=== PATIENT | female | born 1945 | race Caucasian/White ===

== ENCOUNTER → 2023-08-28 10:42 | Outpatient (REF) | payer MEDICARE, OTHER, SELFPAY ==
[2023-08-28 13:46] LABS: % Basophils 0.9 % (0-2); % Immature Granulocytes 0.2 % (0-0.5); % Monocytes 11.2 % (1.7-9.3); % Neutrophils 65.7 % (42.2-75.2); Absolute Monocytes 0.5 10^3/uL (0.1-0.6); Hematocrit 39.2 % (37.0-47.0); Mean Corp Hgb Conc. 33.2 g/dL (33.0-37.0); Mean Corpuscular Hgb 30.1 pg (27.0-31.0); Mean Corpuscular Volume 90.7 fL (81.0-99.0); Mean Platelet Volume 11.8 fL (7.4-10.4); Nucleated Red Blood Cells % 0 %; Platelet Count 150 10^3/uL (130-400); Red Blood Cell Count 4.32 10^6/uL (4.20-5.40); Red Cell Dist. Width 13.4 % (11.5-14.5); White Blood Cell Count 4.6 10^3/uL (4.8-10.8)
[2023-08-28 13:54] LABS: ALT (SGPT) 18 U/L (0-35); AST (SGOT) 27 U/L (14-36); Albumin 3.8 g/dl (3.5-5.0); Alkaline Phosphatase 91 U/L (38-126); Blood Urea Nitrogen 14 mg/dl (7-17); Calcium 9.4 mg/dl (8.4-10.2); Carbon Dioxide 32 mmol/L (22-30); Chloride 103 mmol/L (98-107); Glucose 108 mg/dl (70-99); Potassium 3.8 mmol/L (3.5-5.1); Sodium 140 mmol/L (135-145); Total Bilirubin 0.9 mg/dl (0.2-1.3); Total Protein 6.8 g/dl (6.3-8.2); eGFR > 60.00
[2023-08-28 14:26] LABS: TSH Reflex To Free T4 0.06 uIU/ml (0.47-4.68)
[2023-08-28 14:44] LABS: Vitamin B12 353 pg/ml (239-931)
[2023-08-28 14:52] LABS: Free T4 1.25 ng/dl (0.78-2.19)
[2023-09-04 17:18] LABS: Syphilis/T. pallidum Ab Reflex Negative (Negative)
== END ==
LOC: HWLAB 10:42
PROVIDERS: ATTENDING PHYSICIAN Student in an Organized Health Care Education/Training Program
DX: R41.3 Other amnesia (principal); E03.9 Hypothyroidism, unspecified; G31.84 Mild cognitive impairment of uncertain or unknown etiology
CPT/HCPCS: 36415; 80053; 82607; 84439; 84443; 85025; 86780

== ENCOUNTER → 2023-09-15 13:28 | Outpatient (REF) | payer MEDICARE, OTHER, SELFPAY | LOC: MRI 3T 13:28 | PROVIDERS: ATTENDING PHYSICIAN Student in an Organized Health Care Education/Training Program | DX: R41.3 Other amnesia (principal); G31.84 Mild cognitive impairment of uncertain or unknown etiology | CPT/HCPCS: 70551 ==

== ENCOUNTER → 2023-10-08 10:32 | Outpatient (REF) | payer MEDICARE, OTHER, SELFPAY ==
[2023-10-09 14:53] LABS: Syphilis/T. pallidum Ab Reflex Negative (Negative)
== END ==
LOC: HWLAB 10:32
PROVIDERS: ATTENDING PHYSICIAN Student in an Organized Health Care Education/Training Program
DX: E03.9 Hypothyroidism, unspecified (principal); R41.3 Other amnesia; G31.84 Mild cognitive impairment of uncertain or unknown etiology
CPT/HCPCS: 36415; 84443; 86780

== ENCOUNTER → 2023-10-22 15:02 | Outpatient (REF) | payer MEDICARE, OTHER, SELFPAY ==
[2023-10-22 17:17] LABS: TSH Reflex To Free T4 1.04 uIU/ml (0.47-4.68)
== END ==
LOC: REG 15:02
PROVIDERS: ATTENDING PHYSICIAN Student in an Organized Health Care Education/Training Program
DX: E03.9 Hypothyroidism, unspecified (principal)
CPT/HCPCS: 36415; 84443

== ENCOUNTER → 2023-12-21 17:39 | Outpatient (REF) | payer MEDICARE, OTHER, SELFPAY | LOC: WDC 17:39 | PROVIDERS: ATTENDING PHYSICIAN Student in an Organized Health Care Education/Training Program | DX: Z12.31 Encounter for screening mammogram for malignant neoplasm of breast (principal) | CPT/HCPCS: 77063; 77067 ==

== ENCOUNTER → 2023-12-29 07:15 | Outpatient (REF) | payer MEDICARE, OTHER, SELFPAY ==
[2023-12-29 10:12] LABS: % Basophils 0.5 % (0-2); % Immature Granulocytes 0.3 % (0-0.5); % Neutrophils 55.2 % (42.2-75.2); Absolute Lymphocytes 1.2 10^3/uL (1.2-3.4); Absolute Monocytes 0.5 10^3/uL (0.1-0.6); Absolute Neutrophils 2.1 10^3/uL (1.4-6.5); Hematocrit 39.9 % (37.0-47.0); Hemoglobin 13.1 g/dL (12.0-16.0); Mean Corp Hgb Conc. 32.8 g/dL (33.0-37.0); Mean Corpuscular Hgb 29.2 pg (27.0-31.0); Mean Corpuscular Volume 89.1 fL (81.0-99.0); Mean Platelet Volume 12.2 fL (7.4-10.4); Nucleated Red Blood Cells % 0 %; Platelet Count 135 10^3/uL (130-400); Red Blood Cell Count 4.48 10^6/uL (4.20-5.40); Red Cell Dist. Width 13.8 % (11.5-14.5); White Blood Cell Count 3.9 10^3/uL (4.8-10.8)
[2023-12-29 11:01] LABS: ALT (SGPT) 17 U/L (0-35); AST (SGOT) 28 U/L (14-36); Albumin 4.4 g/dl (3.5-5.0); Alkaline Phosphatase 89 U/L (38-126); Blood Urea Nitrogen 15 mg/dl (7-17); Calcium 9.3 mg/dl (8.4-10.2); Carbon Dioxide 29 mmol/L (22-30); Chloride 103 mmol/L (98-107); Glucose 109 mg/dl (70-99); Potassium 3.5 mmol/L (3.5-5.1); Sodium 142 mmol/L (135-145); Total Bilirubin 0.9 mg/dl (0.2-1.3); Total Protein 6.8 g/dl (6.3-8.2); eGFR > 60.00
== END ==
LOC: SDSPAT 07:15
PROVIDERS: ATTENDING PHYSICIAN Obstetrics & Gynecology Gynecologic Oncology; FAMILY PHYSICIAN Student in an Organized Health Care Education/Training Program
DX: Z01.818 Encounter for other preprocedural examination (principal)
CPT/HCPCS: 36415; 80053; 85025; 86850; 86900; 86901; 93005

== ENCOUNTER 2024-01-05 06:21 | Day surgery (SDC) | payer MEDICARE, OTHER, SELFPAY ==
[2023-12-29 07:35] VITALS: BMI 33.4
[2024-01-05 07:57] VITALS: BMI 33.4
[2024-01-05 07:59] VITALS: BP 163/67
[2024-01-05] MEDS: TYLENOL 1000 MG PO (08:08)
[2024-01-05] MEDS: HEPARIN 5000 UNITS SC (08:08)
[2024-01-05] MEDS: CELEBREX 200 MG PO (08:08)
[2024-01-05] MEDS: NORMOSOL-R 1000 IV (08:21)
[2024-01-05 10:55] VITALS: BP 163/67
--- NOTE | 2024-01-05 11:01 | OR.RPT ---
Operative Report
Operative Report
Date of surgery: January 05, 2024
Preoperative diagnosis Vulvar intraepithelial neoplasia 3
Postop diagnosis: Same
Surgeon: Lorenzo Benito MD
Anesthesia General LMA intubation
Procedure partial simple vulvectomy (right posterior vulva and perineal body)
Estimated blood loss 5 cc
Complications : none
Procedure in detail: This patient is brought to the operating room for definitive excision of recently diagnosed severe dysplasia involving vulva. She was placed in supine position, general anesthesia was induced and she was intubated with LMA.
She was positioned with yellowfin stirrups in dorsal lithotomy, hair involving right and left labia perineal body and perianal skin was clipped. The patient was prepped with ChloraPrep on the skin and Betadine and vagina. Timeout procedure was
carried out she was properly identified, she received Ancef 2 g IV for prophylaxis. The skin was soaked in acetic acid 0.25% for 3 minutes and the outline of the lesion was better defined. Prior to making skin incision the incision line was
infiltrated with 1% lidocaine with epinephrine. Skin incision was made in an elliptical fashion involving the posterior vulva, right anterior perianal region the entire perineal body and left posterior vulva. Skin incision was made with skin,
electrocautery was used to excise skin and subcutaneous tissue down to the level of deep fat. Good hemostasis was established the specimen was tagged using double strands on right mid labia majora, and on the left side with single strand of suture.
I used a series of horizontal mattress sutures using 3-0 Monocryl to reapproximate this butterfly shaped opening of the skin and then the perineal body was reconstructed with a series of sutures bringing the right and left tissue together. I
examined the anus and vagina and there was no injury or communication. 10 cc 0.25% Marcaine was applied to the incision. Silvadene was applied to the incision and dressing was applied. Counts of laps instruments and needle was correct x 2. I was
present and scrubbed for entire procedure as dictated above.
Disposition: To PACU extubated stable
[2024-01-05 11:57] VITALS: BP 164/63
[2024-01-05 12:00] VITALS: BP 156/131; BP 164/63
[2024-01-05 12:20] VITALS: BP 158/68
[2024-01-05 12:42] VITALS: BP 173/78
== END 2024-01-05 12:59 | disposition home or self-care (01) ==
LOC: SDS 06:21
PROVIDERS: ATTENDING PHYSICIAN Obstetrics & Gynecology Gynecologic Oncology
DX: D07.1 Carcinoma in situ of vulva (principal)
CPT/HCPCS: 56620; 88309

== ENCOUNTER → 2025-01-30 13:38 | Outpatient (REF) | payer MEDICARE, OTHER, SELFPAY | LOC: REG 13:38 | PROVIDERS: ATTENDING PHYSICIAN Student in an Organized Health Care Education/Training Program | DX: E03.9 Hypothyroidism, unspecified (principal) | CPT/HCPCS: 36415; 84439; 84443 ==

== ENCOUNTER → 2025-02-28 10:27 | Outpatient (REF) | payer MEDICARE, OTHER, SELFPAY | LOC: REG 10:27 | PROVIDERS: ATTENDING PHYSICIAN Student in an Organized Health Care Education/Training Program | DX: E03.9 Hypothyroidism, unspecified (principal) | CPT/HCPCS: 36415; 84439; 84443 ==

== ENCOUNTER → 2025-05-19 10:31 | Outpatient (REF) | payer MEDICARE, OTHER, SELFPAY ==
[2025-05-19 11:24] LABS: Hematocrit 41.5 % (37.0-47.0); Hemoglobin 13.6 g/dL (12.0-16.0); Mean Corp Hgb Conc. 32.8 g/dL (33.0-37.0); Mean Corpuscular Volume 97.4 fL (81.0-99.0); Nucleated Red Blood Cells % 0 %; Platelet Count 138 10^3/uL (130-400); Red Cell Dist. Width 13.6 % (11.5-14.5)
[2025-05-19 11:57] LABS: ALT (SGPT) 48 U/L (0-35); AST (SGOT) 39 U/L (14-36); Albumin 4.7 g/dl (3.5-5.0); Alkaline Phosphatase 78 U/L (38-126); Blood Urea Nitrogen 18 mg/dl (7-17); Calcium 9.7 mg/dl (8.4-10.2); Carbon Dioxide 33 mmol/L (22-30); Chloride 102 mmol/L (98-107); Glucose 104 mg/dl (70-99); Potassium 4.2 mmol/L (3.5-5.1); Sodium 141 mmol/L (135-145); Total Protein 7.3 g/dl (6.3-8.2); eGFR 50.17
[2025-05-19 14:30] LABS: Folate > 20.0 ng/ml (2.76-20)
[2025-05-19 20:53] LABS: Vitamin B12 258 pg/ml (239-931)
== END ==
LOC: REG 10:31
PROVIDERS: ATTENDING PHYSICIAN Student in an Organized Health Care Education/Training Program
DX: G30.1 Alzheimer's disease with late onset (principal); R41.89 Other symptoms and signs involving cognitive functions and awareness; R26.89 Other abnormalities of gait and mobility; F10.90 Alcohol use, unspecified, uncomplicated; S30.861A Insect bite (nonvenomous) of abdominal wall, initial encounter; E03.1 Congenital hypothyroidism without goiter
CPT/HCPCS: 36415; 80053; 82607; 82746; 84443; 85025; 86618

== ENCOUNTER → 2025-06-14 09:48 | Outpatient (REF) | payer MEDICARE, OTHER, SELFPAY ==
[2025-06-14 11:19] LABS: ALT (SGPT) 29 U/L (0-35); AST (SGOT) 32 U/L (14-36); Albumin 4.4 g/dl (3.5-5.0); Alkaline Phosphatase 71 U/L (38-126); Blood Urea Nitrogen 18 mg/dl (7-17); Calcium 9.4 mg/dl (8.4-10.2); Carbon Dioxide 31 mmol/L (22-30); Chloride 102 mmol/L (98-107); Glucose 109 mg/dl (70-99); Potassium 3.7 mmol/L (3.5-5.1); Sodium 141 mmol/L (135-145); Total Protein 6.9 g/dl (6.3-8.2); eGFR > 60.00
== END ==
LOC: REG 09:48
PROVIDERS: ATTENDING PHYSICIAN Student in an Organized Health Care Education/Training Program
DX: N17.9 Acute kidney failure, unspecified (principal)
CPT/HCPCS: 36415; 80053

== ENCOUNTER → 2025-06-27 14:02 | Outpatient (REF) | payer MEDICARE, OTHER, SELFPAY | LOC: HWWDC 14:02 | PROVIDERS: ATTENDING PHYSICIAN Student in an Organized Health Care Education/Training Program | DX: Z12.31 Encounter for screening mammogram for malignant neoplasm of breast (principal) | CPT/HCPCS: 77063; 77067 ==